=== PATIENT | male | born 1970 | race Caucasian/White ===

== ENCOUNTER 2025-09-24 08:04 | Outpatient (OUT) | payer OTHER, SELFPAY ==
--- OUTSIDE RECORDS SUMMARY | 2025-09-19 13:40 | XMS_ITS | Encounter Summary ---
Author Organization [facility] Address [address] [place] [address] Care Team Providers Care Fire Lieutenant Name Role Phone Sidney Enriquez DO Primary Care Provider Reason for Visit * ReasonCommentsNeck [facility] 09/01/25 Encounter Details DateTypeDepartmentCare Team (Latest Contact Info)Qydmrnkjuta52/21/2025 1:40 PM ESTOffice Visit [facility] [address] [place] [address] Roberta Luz MD [address] [place] [address] Pharyngeal mass (Primary Dx); Neck mass Social History Tobacco UseTypesPacks/DayYears UsedDateSmoking Tobacco: Every DayCigarettes Smokeless Tobacco: Never Tobacco Cessation:Ready to Q uit: Not Asked; Counseling Given: Not Answered Sex and Gender InformationValueDate RecordedSex Assigned at BirthNot on file Legal SsxGvyo4201/11/2023 11:50 PM EDTGender IdentityNot on fileSexual Orientation Not on filedocumented as of this encounter Last Filed Vital Signs Vital SignReadingTime TakenCommentsBlood Aubwitoc88/6809/19/2025 1:56 PM EST Okvxd81976/21/2025 1:56 PM ESTTemperature--Respiratory Rate--Oxygen Saturation-- Inhaled Oxygen Concentration--Cxnfqi99.6 kg (149 lb)09/19/2025 1:56 PM ESTHeight 182.9 cm (6')09/19/2025 1:56 PM ESTBody Mass Index20. 1:56 PM EST documented in this encounter Progress Notes * Roberta Luz MD - 09/19/2025 1:40 PM EST Subjective Patient ID: Chacorta Crowder is a 55 y.o. male who presents for Neck Mass ([facility] 09/01/25) Pt had a left neck mass found incidentally on an MRI of the c-spine. CT obtained that shows a 3.4cmleft zone 2 mass and a left tongue base lesion. Has had a sore throat for a couple mo. No otalgia. H/O dysphagia and had esophageal dilation 2 mo ago. Pt has smoked 1ppd for about 45 years. Has Occas EtOH. Review of Systems All other systems reviewed and are negative. Family History[1] Active Ambulatory Problems Diagnosis Date Noted Anxiety and depression 09/18/2025 Back pain 01/18/2018 Chronic pain syndrome 09/18/2025 Congenital stenosis of lumbar spine 01/18/2018 Constipation 03/14/2025 Gastro-esophageal reflux disease without esophagitis 01/18/2018 Less than a high school diploma 07/31/2024 Routine health maintenance 03/14/2025 Sacroiliac joint dysfunction of both sides 01/18/2018 Smoker 07/31/2024 Resolved Ambulatory Problems Diagnosis Date Noted No Resolved Ambulatory Problems No Additional Past Medical History Surgical History[2] Allergies[3] Medications Ordered Prior to Encounter[4] Objective Last Recorded Vitals Vitals: 09/19/25 1356 BP: 86/68 Pulse: 110 ENT Physical Exam Constitutional Appearance: patient appears well-developed and well-nourished, Head and Face Appearance: head appears normal and face appears atraumatic; Ear Ear comments: Dane ears normal Nose External Nose: nares patent bilaterally; external nose normal; Internal Nose: nasal mucosa normal; Oral Cavity/Oropharynx Lips: normal; Teeth: normal; Gums: gingiva normal; Tongue: normal; Oral mucosa: normal; Hard palate: normal; OC/OP comments: Hard mass at the lower pole of the left tonsil Neck Neck: neck normal; neck palpation normal; Thyroid: thyroid normal; Respiratory Inspection: breathing unlabored; normal breathing rate; Auscultation: breath sounds are clear; Cardiovascular Inspection: extremities are warm and well perfused; no peripheral edema present; Auscultation: regular rate and rhythm; Patient ID: Chacorta Crowder is a 55 y.o. male. Procedures A diagnostic flexible fiberoptic laryngoscopy was performed. The flexible fiberoptic laryngoscope was placed into the nose and advanced to the level of the tip of the epiglottis. Examination of the larynx including both surfaces of the epiglottis false and true vocal folds, arytenoids and surrounding mucosal surfaces show no evidence of lesion, ulceration or mass. Normal bilateral true vocal foldmotion is present. There is a 1.5cm mass at the junction of the left inferior tonsillar pole and tongue base Assessment/Plan Diagnoses and all orders for this visit: Pharyngeal mass Neck mass Pt has a left inf tonsillar pole/tongue base and a mass in the neck c/w a metastatic SCCA. I will plan a DL and bx to get a definitive dose. We will plan to test for P16 as tumors in this location are usually associated with papilloma virus [1] Family History Problem Relation Name Age of Onset Heart failure Mother Cancer Father [2] Past Surgical History: Procedure Laterality Date HERNIA REPAIR when he was 12 SKIN CANCER EXCISION back [3] Allergies Allergen Reactions Prednisone Shortness of breath Aspirin Other Reaction(s): Other (see comments), Unknown Codeine Other Reaction(s): GI intolerance, Unknown Naproxen GI intolerance Other Reaction(s): GI intolerance [4] Current Outpatient Medications on File Prior to Visit Medication Sig Dispense Refill diazePAM (Valium) 10 MG tablet TAKE 1 TABLET BY MOUTH A ONE TIME DOSE NEEDED FOR ANXIETY gabapentin (Neurontin) 300 MG capsule Take 300 mg by mouth in the morning and 300 mg in the eveningand 300 mg before bedtime. ibuprofen 800 MG tablet Take 800 mg by mouth 3 (three) times a day as needed omeprazole (PriLOSEC) [address] capsule Omeprazole tiZANidine (Zanaflex) 4 MG capsule Take 4 mg by mouth in the morning and 4 mg in the evening and 4 mg before bedtime. No current facility-administered medications on file prior to visit. documented in this encounter Plan of Treatment Not on file documented as of this encounter Visit Diagnoses Diagnosis Pharyngeal mass- Primary Unspecified disease of pharynx Neck mass Swelling, mass, or lump in head and neck documented in this encounter Care Teams Team MemberRelationshipSpecialtyStart DateEnd Date Sidney Enriquez DO [address] [facility] [address] [place] [address] PCP - GeneralFamily Ywgunwnx17/21/25documented as of this encounter
--- OUTSIDE RECORDS SUMMARY | 2025-09-24 08:07 | XMS_ITS | Encounter Summary ---
Author Organization [facility] Address [address] [place] [address] Care Team Providers Care Power Line Installer Name Role Phone Sidney Enriquez DO Primary Care Provider + [phone] Encounter Details DateTypeDepartmentCare Team (Latest Contact Info)Rqfoxluzdug43/21/2025Travel Social History Tobacco UseTypesPacks/DayYears UsedDateSmoking Tobacco: Every DayCigarettes Smokeless Tobacco: NeverSex and Gender InformationValueDate RecordedSex Assigned at BirthNot on fileLegal WnuZjit8101/11/2023 11:50 PM EDTGender IdentityNot on fileSexual OrientationNot on filedocumented as of this encounter Plan of Treatment Not on file documented as of this encounter Visit Diagnoses Not on filedocumented in this encounter Care Teams Team MemberRelationshipSpecialtyStart DateEnd Date Sidney Enriquez DO [address] [place] [address] PCP - GeneralFamily Cjuyvhny58/21/25documented as of this encounter
--- OUTSIDE RECORDS SUMMARY | 2025-09-24 08:07 | XMS_ITS | Encounter Summary ---
Author Organization [facility] Address [address] [place] [address] Care Team Providers Care Product Representative Name Role Phone Sidney Enriquez DO Primary Care Provider Encounter Details DateTypeDepartmentCare Team (Latest Contact Info)Hgwbhkgqgyx58/21/2025amboo flowsheet [facility] [address] [place] [address] Roberta Luz MD [address] [place] [address] Social History Tobacco UseTypesPacks/DayYears UsedDateSmoking Tobacco: Every DayCigarettes Smokeless Tobacco: NeverSex and Gender InformationValueDate RecordedSex Assigned at BirthNot on fileLegal JtaAikk9701/11/2023 11:50 PM EDTGender IdentityNot on fileSexual OrientationNot on filedocumented as of this encounter Plan of Treatment Not on file documented as of this encounter Visit Diagnoses Not on filedocumented in this encounter Care Teams Team MemberRelationshipSpecialtyStart DateEnd Date Sidney Enriquez DO [address] [place] [address] PCP - GeneralFamily Whtcnxaw88/21/25documented as of this encounter
--- OUTSIDE RECORDS SUMMARY | 2025-09-24 08:07 | XMS_ITS | Encounter Summary ---
Author Organization [facility] Address [address] [place] [address] Care Team Providers Care Cdl B Driver Name Role Phone Sidney Enriquez DO Primary Care Provider Encounter Details DateTypeDepartmentCare Team (Latest Contact Info)Ufkqvbenkkx23/20/2025Orders Only [facility] [address] [place] [address] Lisa Salazar MD [address] [place] [address] Social History Tobacco UseTypesPacks/DayYears UsedDateSmoking Tobacco: Never AssessedSex and Gender InformationValueDate RecordedSex Assigned at BirthNot on fileLegal Sex Male01/11/2023 11:50 PM EDTGender IdentityNot on fileSexual OrientationNot on filedocumented as of this encounter Plan of Treatment Not on file documented as of this encounter Procedures Procedure NamePriorityDate/TimeAssociated DiagnosisCommentsCT SOFT TISSUE NECK W IV CTPDNAZIOifkczf11/03/2025 8:19 AM ESTdocumented in this encounter Results * CT soft tissue neck w IV contrast (09/01/2025 8:19 AM EST)Anatomical Region LateralityModalityHead, NeckComputed Tomography Narrative Authorizing ProviderResult TypeResult StatusJaclbrittani SALEH CT PROCEDURESFinal Result documented in this encounter Visit Diagnoses Not on filedocumented in this encounter Care Teams Team MemberRelationshipSpecialtyStart DateEnd Date Sidney Enriquez DO [address] [place] [address] PCP - GeneralFamily Wjdrjiyq96/21/25documented as of this encounter
--- OUTSIDE RECORDS SUMMARY | 2025-09-24 08:07 | XMS_ITS | Clinical Summary ---
Author Organization [facility] Address [address] [place] [address] Care Team Providers Care Creative Specialist Name Role Phone YvonneSandra clemente Oc CRISTINA Primary Care Provider [phone] Allergies Active AllergyReactionsCriticalityNoted DateCommentsNaproxenGI Upset01/18/2018 Medications MedicationSigDispense QuantityRefillsLast FilledStart DateEnd DateStatus Omeprazole 20 mg TbEC 12/12/2017Active DULoxetine (CYMBALTA) 20 mg capsule Indications:Smoker,Gastroesophageal reflux disease, esophagitis presence not specified,Facet syndromeTake 1 tab PO qd 30 capsule Active gabapentin (NEURONTIN) 100 mg capsule Indications:Smoker,Gastroesophageal reflux disease, esophagitis presence not specified,Facet syndrome,Chronic pain of left knee,Pain in right hipTake 100 mg by mouth once daily as needed. Pt. States takes once daily06/05/2018Active hydrOXYzine pamoate (VISTARIL) 25 mg capsule Indications:Smoker,Gastroesophageal reflux disease, esophagitis presence not specified,Facet syndrome,Chronic pain of left knee,Pain in right hip06/05/2018 Active omeprazole (PRILOSEC) 20 mg capsule Indications:Smoker,Gastroesophageal reflux disease, esophagitis presence not specified,Facet syndrome,Chronic pain of left knee,Pain in right hip07/18/2018 Active VSL#3 112.5 billion cell cap Indications:Smoker,Gastroesophageal reflux disease, esophagitis presence not specified,Facet syndrome,Chronic pain of left knee,Pain in right hip06/19/2018 Active 16.2-0.1037 -0.0194 mg per tablet Indications:Smoker,Gastroesophageal reflux disease, esophagitis presence not specified,Facet syndrome,Chronic pain of left knee,Pain in right hipTake 1 tablet by mouth three times daily.Active FLECTOR 1.3 % topical patch 11/05/2018Active gabapentin (NEURONTIN) 300 mg capsule 10/29/2018Active hydrOXYzine HCl (ATARAX) 50 mg tablet 11/07/2018Active methocarbamol (ROBAXIN) 750 mg tablet 09/18/2018Active predniSONE (DELTASONE) 20 mg tablet 09/18/2018Active promethazine (PHENERGAN) 25 mg tablet 11/02/2018Active Active Problems ProblemNoted DateDiagnosed DateBack pain01/18/2018GERD (gastroesophageal reflux disease)01/18/2018Congenital stenosis of lumbar spine01/18/2018Sacroiliac joint dysfunction of both sides01/18/2018SmokerAnxiety and depressionChronic pain syndrome Family History Medical HistoryRelationCommentsArthritisFatherCancerFatherHeart diseaseFather ArthritisMotherHeart diseaseMotherRelationStatusCommentsFatherMother Social History Tobacco UseTypesPacks/DayYears UsedDateSmoking Tobacco: Every KdoAaiwkkpfav207 Smokeless Tobacco: Never Comments:smokes 1 ppd Alcohol UseStandard Drinks/WeekCommentsYes0 (1 standard drink = 0.6 oz pure alcohol)socialArea Deprivation IndexAnswerDate RecordedNational Score (1-100), lower number is lower riskNot on file10/04/2020State Score (1-10), lower number is lower riskNot on file10/04/2020Data from: https://www.neighborhoodatlas.[facility].edu/. 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 tbdpndUnmesf926.9 cm (6')01/18/2018 9:07 AM EDTself report ht/wtBody Mass Index18.9901/18/2018 9:07 AM EDT Plan of Treatment Health MaintenanceDue DateLast DoneCommentsAnxiety Ofvieaorj11/27/1986Depression Umeycvrka92/27/1986HIV Scpiymgjf76/27/1986Hepatitis C Wmcebsnem68/27/1986 DTaP,Tdap,Td Vaccine (1 - Tdap)1987Hepatitis B Vaccine (1 of 3 - 19+ 3- dose series)1987Lipid Owmihhfbg04/27/2003CT Vnbktuobbfmu82/27/2013 Cologuard (FIT-DNA)07/26/20136891Ycljliboejp06/27/2013Colorectal Cancer Screening 2013Diabetes Fuzehkyhf63/27/2013Fecal Occult Blood2013Prostate Cancer Screening Tbnbvjxqor19/27/4963Dhfgisjlgkgdx84/27/2013Pneumococcal Vaccine: 50+ (1 of 1 - PCV)2018Shingrix Vaccine (1 of 2)2018Covid-19 Vaccine (1 - 2024- season)2025Influenza Vaccine (#1)2025 Insurance Care Teams Team MemberRelationshipSpecialtyStart DateEnd Date Sandra Gonsales NP [address] [place] [address] [place] [address] [facility]12/13/17
--- OUTSIDE RECORDS SUMMARY | 2025-09-24 08:07 | XMS_ITS | Patient Health Record ---
Demographics Address [address] [place] [address] Mobile Email Address Preferred Language en Marital Status unmarried Yazidi Affiliation Unknown Race White Ethnic Group Not or Lati no Author Organization [facility] [facility] es Address [address] [place] [address] Care Team Providers Care Rewinder Operator Name Role Phone Issac Saldaña Primary Care Provider Allergies Allergen (clinical drug ingredient) Drug/Non Drug Allergy documented on EMR Reaction Allergy Type Onset Date Status aspirin Aspirin Unknown Drug Allergy ActivecodeineCodeineUnknownDrug AllergyActive Reason For Referral No Information Medications Medication SIG (Take, Route, Frequency, Duration) Notes Start Date End Date Status Tylenol ActiveOmeprazoleActive Plan Of Treatment No Information Insurance Providers Payer Name Payer Address Payer Phone Subscriber Number Group Number Insured Name Patient Relationship to Insured Coverage Start Date Coverage End Date [employer] [address] [place] [address] [id number] Sheldon SELLERS - patient is the [id number] 2022ental Wrap [facility] [address] [place] [id number], LARRYSelf - patient is the [id number] 2022
--- OUTSIDE RECORDS SUMMARY | 2025-09-24 08:07 | XMS_ITS | Clinical Summary ---
Author Organization [facility] Address [address] [place] [address] Care Team Providers Care Hammer Fitter Name Role Phone Sidney Enriquez DO Primary Care Provider [phone] Allergies Active AllergyReactionsCriticalityNoted GdchQbcejrnyEwyhfeo10/13/2025 Other Reaction(s): Other (see comments), Unknown Hggbtek0207/31/2024 Other Reaction(s): GI intolerance, Unknown NaproxenGI wzrhefluxpu20/22/2018 Other Reaction(s): GI intolerance PrednisoneShortness of fwlhkyMzpj06/02/2024 Medications MedicationSigDispense QuantityRefillsLast FilledStart DateEnd DateStatus gabapentin (Neurontin) 300 MG capsule Take 300 mg by mouth in the morning and 300 mg in the evening and 300 mg before bedtime.5Active ibuprofen 800 MG tablet Take 800 mg by mouth 3 (three) times a day as wyqjmv6308/28/2025tive diazePAM (Valium) 10 MG tablet TAKE 1 TABLET BY MOUTH A ONE TIME DOSE NEEDED FOR XCNOYRC3808/28/2025tive omeprazole (PriLOSEC) [address] capsule OmeprazoleActive tiZANidine (Zanaflex) 4 MG capsule Take 4 mg by mouth in the morning and 4 mg in the evening and 4 mg before bedtime.5Active Active Problems ProblemNoted DateDiagnosed DateAnxiety and cyshkbugni63/20/2025hronic pain ixfxqvzk55/20/0753Avceukysbhop29/16/2025Routine health tqxubbsenmt35/16/2025Less than a high school liuarmt9707/31/20248144Hgwdim07/02/2024Back pain01/18/2018 Congenital stenosis of lumbar spine01/18/2018Gastro-esophageal reflux disease without hypohqlvqxm07/22/2018 Overview (09/18/2025): K21.9 - Gastrointestinal - low Added by Interface Sacroiliac joint dysfunction of both sides01/18/2018 Encounters DateTypeDepartmentCare EtxkPqplzuflyqd83/21/2025 1:40 PM ESTOffice Visit [facility] [address] [place] [address] Roberta Luz MD Pharyngeal mass (Primary Dx); Neck mass09/19/2025amboo flowsheet [facility] [address] [place] [address] Roberta Luz MD 09/19/20257534Pkqdnt99/20/2025Orders Only [facility] Ot[facility] [address] [place] [address] Lisa Salazar MD from Last 3 Months Family History Medical HistoryRelationNameCommentsCancerFatherHeart failureMotherRelationName StatusCommentsFatherDeceasedMotherDeceased Social History Tobacco UseTypesPacks/DayYears UsedDateSmoking Tobacco: Every DayCigarettes Smokeless Tobacco: Never Tobacco Cessation:Ready to Q uit: Not Asked; Counseling Given: Not Answered Sex and Gender InformationValueDate RecordedSex Assigned at BirthNot on file Legal ZnfPqil1401/11/2023 11:50 PM EDTGender IdentityNot on fileSexual Orientation Not on file Last Filed Vital Signs Vital SignReadingTime TakenCommentsBlood Sgewjklc34/6809/19/2025 1:56 PM EST Mpsss28441/21/2025 1:56 PM ESTTemperature--Respiratory Rate--Oxygen Saturation-- Inhaled Oxygen Concentration--Casjte67.6 kg (149 lb)09/19/2025 1:56 PM ESTHeight 182.9 cm (6')09/19/2025 1:56 PM ESTBody Mass Index20.21111/19/2024 1:56 PM EST Plan of Treatment Not on file Procedures Procedure NamePriorityDate/TimeAssociated DiagnosisCommentsCT SOFT TISSUE NECK W IV BZZGHAJHZkydraa11/03/2025 8:19 AM ESTfrom Last 3 Months Results * CT soft tissue neck w IV contrast (09/01/2025 8:19 AM EST)Anatomical Region LateralityModalityHead, NeckComputed Tomography Narrative Authorizing ProviderResult TypeResult StatusLisa SALEH CT PROCEDURESFinal Result from Last 3 Months Insurance Care Teams Team MemberRelationshipSpecialtyStart DateEnd Date Sidney Enriquez DO [address] [facility] [address] [place] [address] PCP - GeneralFamily Vjvpqhwc25/21/25
--- OUTSIDE RECORDS SUMMARY | 2025-09-24 08:07 | XMS_ITS | Clinical Summary ---
Author Organization [facility] 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 [employer] 08/13/2025 1:48 PM EDT - 08/15/2025 11:59 PM EDTHospital Encounter [facility] [address] [place] [address] Radiculopathy, cervical Discharge Disposition: Home or Self Care07/15/2025Transcribe Orders Mike Carranza Pre Access [address] [place] [address] 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 [employer] Radiculopathy, cervical (Primary Dx)from Last 3 Months Social History Tobacco UseTypesPacks/DayYears UsedDateSmoking Tobacco: Never AssessedSex and Gender InformationValueDate RecordedSex Assigned at BirthNot on fileLegal Sex Male07/15/2025 9:09 AM EDTGender IdentityNot on fileSexual OrientationNot on file Plan of Treatment DateTypeDepartmentCare Team (Latest Contact Info)Neegjibyikz21/04/2025 1:00 PM ESTAppointment [facility] [address] [place] [place] [address] media// sw ptHealth MaintenanceDue DateLast DoneCommentsDepression Screen 1980HIV kmhhzr6607/26/1983Hepatitis C ztyqhn3207/26/1986DTaP/Tdap/Td vaccine (1 - Tdap)1987Hepatitis B vaccine (1 of 3 - 19+ 3-dose series)1987 Cfwwdz8007/26/20088446Uujzlgmjmzw20/27/2013Colorectal Cancer Xctyju8207/26/2013FIT/FOBT: Average risk2013Fecal-DNA (Cologuard): Average risk2013 Sigmoidoscopy/CT dmufojfrhteo10/27/2013Pneumococcal 50+ years Vaccine (1 of 1 - PCV)2018Shingles vaccine (1 of 2)2018Flu vaccine (#1)05/30/2025 COVID-19 Vaccine (1 - season)2025Hepatitis A vaccineAged OutNo longer eligible based on patient's age to complete this topicHib vaccineAged Out No longer eligible based on patient's age to complete this topicMeningococcal (ACWY) vaccineAged OutNo longer eligible based on patient's age to complete this topicMeningococcal B vaccineAged OutNo longer eligible based on patient's age to complete this topicPolio vaccineAged OutNo longer eligible based on patient's age to complete this topic Procedures Procedure NamePriorityDate/TimeAssociated DiagnosisCommentsMRI CERVICAL SPINE WO FOWWDJFCQwspezs86/15/2025 2:48 PM EDT Radiculopathy, cervical from Last 3 Months Results * MRI CERVICAL SPINE WO CONTRAST (08/13/2025 2:48 PM EDT)Anatomical Region LateralityModalityC-spine, T-spine, NeckMagnetic ResonanceSpecimen (Source) Anatomical Location / LateralityCollection Method / VolumeCollection Time Received Time08/13/2025 4:05 PM EDT Impressions 08/13/2025 4:13 PM EDT 1. Advanced degenerative change with grade 1 retrolisthesis at C4-5. 2. Multilevel central canal stenosis, moderate at C3-4 and C4-5 and mild at C5-6 with slight impression on the ventral aspect of the spinal cord. 3. Multilevel neural foraminal stenosis, most prominent (severe) on the left at C4-5 and on the right at C5-6. 4. Heterogeneous mass in the left neck deep to the sternocleidomastoid muscle measuring up to 2.8 x 1.6 cm. This could represent lymphadenopathy with some partially necrotic nodes. Another heterogeneous cystic areas seen anteriorly in the left neck measuring 1.2 cm. Further evaluation with contrast enhanced CT of the neck is suggested. Narrative 08/13/2025 4:13 PM EDT EXAMINATION: MRI OF THE CERVICAL SPINE WITHOUT CONTRAST 08/13/2025 2:48 pm TECHNIQUE: Multiplanar multisequence MRI of the cervical spine was performed without the administration of intravenous contrast. COMPARISON: None. HISTORY: ORDERING SYSTEM PROVIDED HISTORY: Radiculopathy, cervical TECHNOLOGIST PROVIDED HISTORY: What reading provider will be dictating this exam?->CRC FINDINGS: BONES/ALIGNMENT: There is grade 1 retrolisthesis of C4 on C5. ??There is spurring with disc space narrowing at multiple levels, moderate to severe at C4-5 and C5-6 and moderate at C3-4 and C6-7. ??The vertebral body heights are maintained. The bone marrow signal appears unremarkable. SPINAL CORD: No abnormal cord signal is seen. SOFT TISSUES: There is a heterogeneous partially solid mass with cystic areas in the left neck deep to the sternocleidomastoid muscle seen on axial series 8 and 9 images 4 through 12 measuring up to 2.8 x 1.6 cm. ??The etiology is uncertain although this could represent lymphadenopathy with some partially necrotic nodes. ??Another heterogeneous cystic areas seen anteriorly in the left neck on series 8 image 12 measuring 1.2 cm. C2-C3: There is no significant disc protrusion, spinal canal stenosis or neural foraminal narrowing. C3-C4: There is broad-based disc osteophyte complex and mild posterior ligamentum flavum hypertrophy causing moderate central canal stenosis with slight impression on the ventral aspect of the spinal cord. ??There is moderate to severe right and moderate left neural foraminal narrowing. C4-C5: There is grade 1 retrolisthesis, broad-based disc osteophyte complex and mild ligamentum flavum hypertrophy causing moderate central canal stenosis with impression on the ventral aspect of the spinal cord. ??There is severe left and mild right neural foraminal narrowing. C5-C6: There is central and right posterolateral disc osteophyte complex causing mild central canal stenosis with minimal impression on the ventral aspect of the spinal cord. ??There is severe right and mild left neural foraminal narrowing. C6-C7: There is mild disc bulge without evidence of significant central canal stenosis or cord compression. ??There is moderate bilateral neural foraminal narrowing. C7-T1: There is no significant disc protrusion, spinal canal stenosis or neural foraminal narrowing. Procedure Note Perico Sanderson MD - 08/13/2025 EXAMINATION: MRI OF THE CERVICAL SPINE WITHOUT CONTRAST 08/13/2025 2:48 pm TECHNIQUE: Multiplanar multisequence MRI of the cervical spine was performed withoutthe administration of intravenous contrast. COMPARISON: None. HISTORY: ORDERING SYSTEM PROVIDED HISTORY: Radiculopathy, cervical TECHNOLOGIST PROVIDED HISTORY: What reading provider will be dictating this exam?->CRC FINDINGS: BONES/ALIGNMENT: There is grade 1 retrolisthesis of C4 on C5. There is spurring with disc space narrowing at multiple levels, moderate to severeat C4-5 and C5-6 and moderate at C3-4 and C6-7. The vertebral body heightsare maintained. The bone marrow signal appears unremarkable. SPINAL CORD: No abnormal cord signal is seen. SOFT TISSUES: There is a heterogeneous partially solid mass with cysticareas in the left neck deep to the sternocleidomastoid muscle seen on axialseries 8 and 9 images 4 through 12 measuring up to 2.8 x 1.6 cm. The etiologyis uncertain although this could represent lymphadenopathy with somepartially necrotic nodes. Another heterogeneous cystic areas seen anteriorly inthe left neck on series 8 image 12 measuring 1.2 cm. C2-C3: There is no significant disc protrusion, spinal canal stenosis or neural foraminal narrowing. C3-C4: There is broad-based disc osteophyte complex and mild posterior ligamentum flavum hypertrophy causing moderate central canal stenosiswith slight impression on the ventral aspect of the spinal cord. There is moderate to severe right and moderate left neural foraminal narrowing. C4-C5: There is grade 1 retrolisthesis, broad-based disc osteophytecomplex and mild ligamentum flavum hypertrophy causing moderate central canal stenosis with impression on the ventral aspect of the spinal cord. Thereis severe left and mild right neural foraminal narrowing. C5-C6: There is central and right posterolateral disc osteophyte complex causing mild central canal stenosis with minimal impression on theventral aspect of the spinal cord. There is severe right and mild left neural foraminal narrowing. C6-C7: There is mild disc bulge without evidence of significant centralcanal stenosis or cord compression. There is moderate bilateral neuralforaminal narrowing. C7-T1: There is no significant disc protrusion, spinal canal stenosis or neural foraminal narrowing. IMPRESSION: 1. Advanced degenerative change with grade 1 retrolisthesis at C4-5. 2. Multilevel central canal stenosis, moderate at C3-4 and C4-5 and mildat C5-6 with slight impression on the ventral aspect of the spinal cord. 3. Multilevel neural foraminal stenosis, most prominent (severe) on theleft at C4-5 and on the right at C5-6. 4. Heterogeneous mass in the left neck deep to the sternocleidomastoidmuscle measuring up to 2.8 x 1.6 cm. This could represent lymphadenopathy withsome partially necrotic nodes. Another heterogeneous cystic areas seenanteriorly in the left neck measuring 1.2 cm. Further evaluation with contrastenhanced CT of the neck is suggested. Authorizing ProviderResult TypeResult StatusLisa Oneal APRN - [facility] MRI ORDERABLESFinal Result from Last 3 Months Insurance
--- NOTE | 2025-09-24 08:14 | ECG_ITS ---
The 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 Measurements Intervals [place] Rate: 66 P: 62 NH: 141 QRS: 118 QRSD: 122 T: 76 QT: 342 QTc: 359 Interpretive Statements SINUS RHYTHM MARKED RIGHT AXIS DEVIATION [QRS AXIS > 100] RIGHT BUNDLE BRANCH BLOCK [120+ ms QRS DURATION, UPRIGHT V1, 40+ ms S IN I/aVL/V4/V5/V6] Abnormal ECG No previous ECG available for comparison Electronically Signed On 09-24-2025 19:10:18 EST by RUDDY BLISS M.D.
--- NOTE | 2025-09-24 08:14 | XR_ITS ---
The [address] [address] Patient Name: ESPERANZA SELLERS MRN: [id number] date: 1970 Sex: M Assigned Patient Location: [facility] Current Patient Location: [facility] Accession/Order Number: [id number] Exam Date: 09/24/2025 09:00 Report Date: 09/24/2025 09:13 At the request of: MARISA PAYNE MD Procedure: XR chest 2V PA AND LATERAL CHEST: CLINICAL HISTORY: Preoperative clearance . History of tobacco use. COMPARISON: None The lungs shows slight hyperinflation. There is no focal parenchymal consolidation, effusion or pneumothorax. The cardiac, hilar and mediastinal silhouettes are within normal limits. There is no vascular congestion. The visualized bony thorax is intact. There is dextroscoliotic curvature and endplate spurring. XR/XR chest 2V IMPRESSION: NO ACUTE CARDIOPULMONARY ABNORMALITY. Impression dictated by: Romi Farley M.D. 09/24/2025 9:13 AM Dictation Location: [place] [address] Electronically authenticated by: [id number] Y Date: 09/24/2025 09:13
[2025-09-24 08:49] LABS: Hematocrit 41.9 % (42.0-54.0); Hemoglobin 14.1 g/dL (14.0-18.0); Immature Granulocytes Abs Auto 0.01 10^3/uL (0.00-0.03); Immature Granulocytes Pct Auto 0.2 % (0.0-0.5); Lymphocytes Absolute Auto 1.5 10^3/uL (1.2-3.8); Mean Corpuscular HGB Conc 33.7 g/dL (29.9-35.2); Mean Corpuscular Hemoglobin 32.2 pg (25.9-34.0); Mean Corpuscular Volume 95.7 fL (80.0-94.0); Platelet Count 273 10^3/uL (150-450); Red Blood Count 4.38 10^6/uL (4.70-6.10); White Blood Count 4.7 10^3/uL (4.0-11.0)
[2025-09-24 09:21] LABS: INR 0.98; Partial Thromboplastin Time 26.9 sec (22.3-36.2); Prothrombin Time 10.4 sec (9.0-11.6)
== END 2025-09-24 08:05 | disposition home or self-care (01) ==
LOC: PST 08:05
PROVIDERS: PCP Family Medicine Adult Medicine; Visit Provider Otolaryngology
DX: J39.2 Other diseases of pharynx (principal); R22.1 Localized swelling, mass and lump, neck
CPT/HCPCS: 36415; 71046; 85025; 85610; 85730; 93005

== ENCOUNTER 2025-10-02 08:51 | Day surgery (SDC) | payer OTHER, SELFPAY ==
--- OUTSIDE RECORDS SUMMARY | 2025-09-19 13:40 | XMS_ITS | Encounter Summary ---
Author Organization [facility] Address [address] [place] [address] Care Team Providers Care Mold Cleaner Name Role Phone Sidney Enriquez DO Primary Care Provider Reason for Visit * ReasonCommentsNeck [facility] 09/01/25 Encounter Details DateTypeDepartmentCare Team (Latest Contact Info)Xpeknsbizmv33/21/2025 1:40 PM ESTOffice Visit [facility] [address] [place] [address] Roberta Luz MD [address] [place] [address] Pharyngeal mass (Primary Dx); Neck mass Social History Tobacco UseTypesPacks/DayYears UsedDateSmoking Tobacco: Every DayCigarettes Smokeless Tobacco: Never Tobacco Cessation:Ready to Q uit: Not Asked; Counseling Given: Not Answered Sex and Gender InformationValueDate RecordedSex Assigned at BirthNot on file Legal RevYuqj3101/11/2023 11:50 PM EDTGender IdentityNot on fileSexual Orientation Not on filedocumented as of this encounter Last Filed Vital Signs Vital SignReadingTime TakenCommentsBlood Jjikxlhe81/6809/19/2025 1:56 PM EST Xlnwe25803/21/2025 1:56 PM ESTTemperature--Respiratory Rate--Oxygen Saturation-- Inhaled Oxygen Concentration--Wlxxcy03.6 kg (149 lb)09/19/2025 1:56 PM ESTHeight 182.9 cm (6')09/19/2025 1:56 PM ESTBody Mass Index20. 1:56 PM EST documented in this encounter Progress Notes * Roberta Luz MD - 09/19/2025 1:40 PM EST Subjective Patient ID: Chacorta Crowder is a 55 y.o. male who presents for Neck Mass (CT [facility] 09/01/25) Pt had a left neck mass found incidentally on an MRI of the c-spine. CT obtained that shows a 3.4cm left zone 2 mass and a left tongue [...] MemberRelationshipSpecialtyStart DateEnd Date Sidney Enriquez DO [address] [facility] [address] [place] [address] PCP - GeneralFamily Ghczbtnq31/21/25documented as of this encounter
[2025-09-24 08:38] VITALS: BP 109/74; PULSE 71; TEMP 36.6; O2SAT 97; BMI 20.1
[2025-10-02] VITALS (13 sets, daily range): BP systolic 89–117; BP diastolic 66–88; PULSE 55–118; TEMP 36.3–36.8; O2SAT 94–98; BMI 19.6
--- NOTE | 2025-10-02 | OP_ITS ---
OPERATION DATE: 10/02/2025 SURGEON: Roberta Luz M.D. PREOPERATIVE DIAGNOSIS: Left tongue base mass and left neck mass. POSTOPERATIVE DIAGNOSIS: Left tongue base mass and left neck mass. PROCEDURE: Direct laryngoscopy and biopsy of left tongue base. ANESTHESIA: General endotracheal COMPLICATIONS: None. FINDINGS: 1.5 cm hard friable mass of the left tongue base. INDICATIONS: This 55-year-old man presented after having been found to have multiple enlarged necrotic lymph nodes in the left neck. He also had, what appeared to be, a 1.5 cm mass involving the tongue base on the same CT scan. PROCEDURE: Patient identified in the holding area and taken back to the OR where he was placed in the supine position. After induction of general endotracheal anesthesia, the table was turned, a shoulder roll placed, and the Dedo laryngoscope was used to examine the tonsillar fossae and tongue base. There was early discovery of a friable mass, as noted above. Careful examination of the rest of the tongue base showed no other clear abnormality. Multiple biopsies, using an upbiting cup forcep were obtained of the above noted mass. There was self-limited bleeding. Once the bleeding had stopped, the oral cavity was irrigated with normal saline and the patient was awakened and taken to the recovery room in good condition. LILI
--- OUTSIDE RECORDS SUMMARY | 2025-10-02 08:55 | XMS_ITS | Clinical Summary ---
Author Organization [facility] Healthcare Address [address] [place] [address] Care Team Providers Care Engineering And Development Director Name Role Phone Sidney Enriquez DO Primary Care Provider [phone] Allergies Active AllergyReactionsCriticalityNoted BlguCtahwafkYhmwtcb05/13/2025 Other Reaction(s): Other (see comments), Unknown Hkaieyk4307/31/2024 Other Reaction(s): GI intolerance, Unknown NaproxenGI pazcacnfvzd29/22/2018 Other Reaction(s): GI intolerance PrednisoneShortness of xluvozJqok95/02/2024 Medications MedicationSigDispense QuantityRefillsLast FilledStart DateEnd DateStatus gabapentin (Neurontin) 300 MG capsule Take 300 mg by mouth in the morning and 300 mg in the evening and 300 mg before bedtime.5Active ibuprofen 800 MG tablet Take 800 mg by mouth 3 (three) times a day as psedjw5408/28/2025tive diazePAM (Valium) 10 MG tablet TAKE 1 TABLET BY MOUTH A ONE TIME DOSE NEEDED FOR KWHJXVC3508/28/2025tive omeprazole (PriLOSEC) [address] capsule OmeprazoleActive tiZANidine (Zanaflex) 4 MG capsule Take 4 mg by mouth in the morning and 4 mg in the evening and 4 mg before bedtime.5Active Active Problems ProblemNoted DateDiagnosed DateAnxiety and msgogwivvi27/20/2025hronic pain iamnblze39/20/8452Srwvrwpscgym81/16/2025Routine health wfamazzbtfy47/16/2025Less than a high school fsoggqn7307/31/20249909Fswkbi19/02/2024Back pain01/18/2018 Congenital stenosis of lumbar spine01/18/2018Gastro-esophageal reflux disease without mtjdiwrukbc53/22/2018 Overview (09/18/2025): K21.9 - Gastrointestinal - low Added by Interface Sacroiliac joint dysfunction of both sides01/18/2018 Encounters DateTypeDepartmentCare OgdoHrtvuomyerg14/26/2025linisync Result Encounter [facility] External Department Unsolicited Roberta Luz MD 09/24/2025linisync Result Encounter [facility] External Department Unsolicited Roberta Luz MD 09/24/2025linisync Result Encounter [facility] External Department Unsolicited Roberta Luz MD 09/19/2025 1:40 PM ESTOffice Visit [facility] [address] [place] [address] Roberta Luz MD Pharyngeal mass (Primary Dx); Neck mass5Bamboo flowsheet [facility] [address] [place] [address] Roberta Luz MD 09/19/20256506Xvpxfb10/20/2025Orders Only [facility] [address] [place] [address] Lisa Salazar MD from Last 3 Months Family History Medical HistoryRelationNameCommentsCancerFatherHeart failureMotherRelationName StatusCommentsFatherDeceasedMotherDeceased Social History Tobacco UseTypesPacks/DayYears UsedDateSmoking Tobacco: Every DayCigarettes Smokeless Tobacco: Never Tobacco Cessation:Ready to Q uit: Not Asked; Counseling Given: Not Answered Sex and Gender InformationValueDate RecordedSex Assigned at BirthNot on file Legal RtvJwqq5101/11/2023 11:50 PM EDTGender IdentityNot on fileSexual Orientation Not on file Last Filed Vital Signs Vital SignReadingTime TakenCommentsBlood Dchhvkzu94/6809/19/2025 1:56 PM EST Nofrh45695/21/2025 1:56 PM ESTTemperature--Respiratory Rate--Oxygen Saturation-- Inhaled Oxygen Concentration--Wubqem07.6 kg (149 lb)09/19/2025 1:56 PM ESTHeight 182.9 cm (6')09/19/2025 1:56 PM ESTBody Mass Index20.21111/19/2024 1:56 PM EST Plan of Treatment Not on file Procedures Procedure NamePriorityDate/TimeAssociated DiagnosisCommentsXR CHEST 2V111/24/2024 9:13 AM EST [facility] NIRIDihhzsu12/26/2025 8:40 AM EST SRMCOH PROTHROMBIN TIME INR W/O RNDTBjxgvsr12/26/2025 8:40 AM EST ALL CBC WITH AUTO TKWVOmyeygn54/26/2025 8:40 AM EST ECG 12-LEAD09/24/2025 7:[address] SOFT TISSUE NECK W IV RKNNZDZYSpzgqkh95/03/2025 8:19 AM ESTfrom Last 3 Months Results * XR CHEST 2V (09/24/2025 9:13 AM EST)Anatomical RegionLateralityModalityOther Specimen (Source)Anatomical Location / LateralityCollection Method / Volume Collection TimeReceived Time09/24/2025 9:13 AM EST Narrative 09/24/2025 9:16 AM EST [facility] ?[address] ? [place] [address] ?XRay Report ? Signed ? Patient: YOUNG,ESPERANZA ? MR#: [id number] ?? : 1970 ?Acct:[id number] ?? Age/Sex: 55 / M ?ADM Date: 09/24/25 ?? Loc: PST ? Attending Dr: Roberta Luz M.D. ? Ordering Physician: Roberta Luz M.D. ?? Date of Service: 09/24/25 ?? Procedure(s): XR chest 2V ?? Accession Number(s): [id number] ? cc: Sidney Enriquez D.O.; Roberta Luz M.D. ? [facility] ? [address] ? [place] [address] ? Patient Name: ?? ESPERANZA ??YOUNG ? MRN: [facility]:[id number] ? date: 1970 ?Sex: M ?? Assigned Patient Location: SURGOUT ?? Current Patient Location: SURGOUT ?? Accession/Order Number: [id number] ?? Exam Date: 09/24/2025 ??09:00 ?Report Date: 09/24/2025 ??09:13 ? At the request of: ?? ROBERTA ??TIMMIS ??MD ? Procedure: ??XR chest 2V ? PA AND LATERAL CHEST: ? CLINICAL HISTORY: Preoperative clearance . History of tobacco use. ? COMPARISON: None ? The lungs shows slight hyperinflation. There is no focal parenchymal ?? consolidation, effusion or pneumothorax. ?? The cardiac, hilar and mediastinal ?? silhouettes are within normal limits. ?? There is no vascular congestion. ?? The ?? visualized bony thorax is intact. ?? There is dextroscoliotic curvature and ?? endplate spurring. ? XR/XR chest 2V ?? IMPRESSION: ? NO ACUTE CARDIOPULMONARY ABNORMALITY. ? Impression dictated by: Romi Farley M.D. ??09/24/2025 9:13 AM ? Dictation Location: [place] [address] ? Electronically authenticated by: [id number] ??Y ?? Date: 09/24/2025 ??09:13 ? Dictated By: ?Romi Farley M.D. ? Signed By: ?09/24/25 0916 ? DD/ 0913 ? TD/TT: ? Trial Mgr: Procedure Note Radiology, Radiologist, - 09/24/2025 [place] [address] XRay Report Signed Patient: APOORVA CROWDER#: [id number] : 1970Acct:[id number] Age/Sex: 55 / MADM Date: 09/24/25 Loc: PST Attending Dr: Roberta Luz M.D. Ordering Physician: Roberta Luz M.D. Date of Service: 09/24/25 Procedure(s): XR chest 2V Accession Number(s): [id number] cc: Sidney Enriquez D.O.; Roberta Luz M.D. [place] [id number] Patient Name: ESPERANZA CROWDER MRN: [id number] date: 1970 Sex: M [facility] Accession/Order Number: [id number] Exam Date: 09/24/2025 09:00 Report Date: 09/24/2025 09:13 At the request of: ROBERTA LUZ MD Procedure: XR chest 2V PA AND LATERAL CHEST: CLINICAL HISTORY: Preoperative clearance . History of tobacco use. COMPARISON: None The lungs shows slight hyperinflation. There is no focal parenchymal consolidation, effusion or pneumothorax. The cardiac, hilar andmediastinal silhouettes are within normal limits. There is no vascular congestion.The visualized bony thorax is intact. There is dextroscoliotic curvature and endplate spurring. XR/XR chest 2V IMPRESSION: NO ACUTE CARDIOPULMONARY ABNORMALITY. Impression dictated by: Romi Farley M.D. 09/24/2025 9:13 AM Dictation Location: [place] [address] Electronically authenticated by: [id number] Y Date: 9:13 Dictated By: Romi Farley M.D. Signed By:09/24/25915 DD/ 2 TD/TT: Trial Mgr: Authorizing ProviderResult TypeResult StatusHilaoumou Luz MDCLINISYNC IMAGING Final Result * SRMCO[facility] PROTHROMBIN TIME INR W/O COUM (09/24/2025 8:40 AM EST)ComponentValueRef RangeTest MethodAnalysis TimePerformed AtPathologist SignaturePROTHROMBIN TIME 10.49.0 - 11.6 secTBHTBH INR0.98TBHComment: DESIRED INR: 2.0-3.0 CONDITIONS NOT LISTED BELOW 2.5-3.5 FOR PROSTHETIC HEART VALVE REPLACEMENT 2.5-3.5 RECURRENT THROMBOSIS Specimen (Source)Anatomical Location / LateralityCollection Method / Volume Collection TimeReceived Time09/24/2025 8:40 AM EST09/24/2025 8:44 AM EST Narrative CLIN[facility]NC - 09/24/2025 9:23 AM EST Authorizing ProviderResult TypeResult StatusHilary H Timmis MDCLINISYNCFinal ResultPerforming OrganizationAddressCity/State/ZIP CodePhone Number [facility] * [facility] APTT (09/24/2025 8:40 AM EST)ComponentValueRef RangeTest MethodAnalysis TimePerformed AtPathologist SignaturePARTIAL THROMBOPLASTIN TIME26.922.3 - 36.2 secTBHSpecimen (Source)Anatomical Location / LateralityCollection Method / VolumeCollection TimeReceived Time09/24/2025 8:40 AM EST09/24/2025 8:44 AM EST Narrative CL[facility]NC - 09/24/2025 9:23 AM EST Authorizing ProviderResult TypeResult StatusHilary H Timmis MDCLINISYNCFinal ResultPerforming OrganizationAddressCity/State/ZIP CodePhone Number [facility] * (ABNORMAL) ALL CBC WITH AUTO DIFF (09/24/2025 8:40 AM EST)ComponentValueRef RangeTest MethodAnalysis TimePerformed AtPathologist SignatureTBH WBC4.74.0 - 11.0 10 3/uLTBHTBH RBC4.38(L)4.70 - 6.10 10 6/uLTBHTBH HGB14.114.0 - 18.0 g/dL TBHTBH HCT41.9(L)42.0 - 54.0 %TBHTBH MCV95.7(H)80.0 - 94.0 fLTBHTBH MCH32.2 25.9 - 34.0 pgTBHTBH MCHC33.729.9 - 35.2 g/dLTBHTBH RDW12.911.0 - 15.0 %TBHTBH LLE279552 - 450 10 3/uLTBHTBH MPV9.2(L)9.5 - 13.5 fLTBHNEUTROPHILS PERCENT AUTO46.043.0 - 75.0 %TBHLYMPHOCYTES PERCENT AUTO33.020.5 - 60.0 %TBHMONOCYTES PERCENT AUTO10.31.7 - 12.0 %TBHTBH EO %9.4(H)0.9 - 7.0 %TBHBASOPHILS PERCENT AUTO1.10.2 - 2.0 %TBHIMMATURE GRANULOCYTES PCT AUTO0.20.0 - 0.5 %TBH NEUTROPHILS ABSOLUTE AUTO2.11.4 - 6.5 10 3/uLTBHLYMPHOCYTES ABSOLUTE AUTO1.5 1.2 - 3.8 10 3/uLTBHMONOCYTES ABSOLUTE AUTO0.50.3 - 0.8 10 3/uLTBHTBH EO #0.4 0.0 - 0.7 10 3/uLTBHBASOPHILS ABSOLUTE AUTO0.10.0 - 0.1 10 3/uLTBHIMMATURE GRANULOCYTES ABS AUTO0.010.00 - 0.03 10 3/uLTBHSpecimen (Source)Anatomical Location / LateralityCollection Method / VolumeCollection TimeReceived Time 09/24/2025 8:40 AM EST09/24/2025 8:44 AM EST Narrative [facility] - 09/24/2025 8:53 AM EST Authorizing ProviderResult TypeResult StatusHilary H Timmis MDCLINISYNCFinal ResultPerforming OrganizationAddressCity/State/ZIP CodePhone Number [facility] * ECG 12-LEAD (09/24/2025 7:36 AM EST)Anatomical RegionLateralityModalityOther Specimen (Source)Anatomical Location / LateralityCollection Method / Volume Collection TimeReceived Time09/24/2025 7:36 AM EST Narrative 09/24/2025 7:10 PM EST [facility] ?[address] ? [place] [id number] ? Electrocardiograph Report ? Signed ? Patient: ESPERANZA CROWDER ? MR#: [id number] ?? : 1970 ?Acct:[id number] ?? Age/Sex: 55 / M ?ADM Date: 09/24/25 ?? Loc: PST ? Attending Dr: Roberta Luz M.D. ? Ordering Physician: Roberta Luz M.D. ?? Date of Service: 09/24/25 ?? Procedure(s): ECG 12 lead ?? Accession Number(s): [id number] ? cc: ?[facility] ? Test Date: ?2025-09-24 ?? Pat Name: ? ESPERANZA YOUNG ?Department: ? Room: ? - ?? Gender: ? Male ? Underwriting Service Representative: ? : ?1970 ? Requested By: ROBERTA ADANMIS ?? Order Number: [id number] ?Reading MD: ?? RUDDY ??IZAIAH, M.D. ? Measurements ?? Intervals ?Elton ? Rate: ? 66 ? P: ?62 ?? NE: ? 141 ?QRS: ?118 ?? QRSD: ? 122 ?T: ?76 ?? QT: ? 342 ? QTc: ?359 ? Interpretive Statements ?? SINUS RHYTHM ?? MARKED RIGHT AXIS DEVIATION [QRS AXIS > 100] RIGHT BUNDLE BRANCH BLOCK [120+ ms QRS DURATION, UPRIGHT V1, 40+ ms S IN ?? I/aVL/V4/V5/V6] ?? Abnormal ECG ?? No previous ECG available for comparison ?? Electronically Signed On 09-24-2025 19:10:18 EST by RUDDY ??Manpreet BLISS ? Dictated By: ?RUDDY BLISS ? Signed By: ?11/26/25 1910 ? DD/ 0736 ? TD/TT: ? Trial Mgr: Procedure Note Radiology, Radiologist, MD - 09/24/2025 [place] [address] Electrocardiograph Report Signed Patient: APOORVA CROWDER#: [id number] : 1970Acct:[id number] Age/Sex: 55 / MADM Date: 09/24/25 Loc: PST Attending Dr: Roberta Luz M.D. Ordering Physician: Roberta Luz M.D. Date of Service: 09/24/25 Procedure(s): ECG 12 lead Accession Number(s): [id number] cc: [facility] Test Date: 2025-09-24 Pat Name: ESPERANZA CROWDER Department: Room: - Gender: Male Underwriting Service Representative: : 1970 Requested By: ROBERTA LUZ Order Number: [id number] Reading MD: RUDDY BLISS M.D. Measurements Intervals Elton Rate: 66 P: 62 NE: 141 QRS: 118 QRSD: 122 T: 76 QT: 342 QTc: 359 Interpretive Statements SINUS RHYTHM MARKED RIGHT AXIS DEVIATION [QRS AXIS > 100] RIGHT BUNDLE BRANCH BLOCK [120+ ms QRS DURATION, UPRIGHT V1, 40+ ms S IN I/aVL/V4/V5/V6] Abnormal ECG No previous ECG available for comparison Electronically Signed On 09-24-2025 19:10:18 EST by RUDDY BLISS M.D. Dictated By: RUDDY BLISS Signed By:09/24/251909 DD/ 5 TD/TT: Trial Mgr: Authorizing ProviderResult TypeResult StatusHilaoumou Luz [facility]ILINISYNC IMAGING Final Result * CT soft tissue neck w IV contrast (09/01/2025 8:19 AM EST)Anatomical Region LateralityModalityHead, NeckComputed Tomography Narrative Authorizing ProviderResult TypeResult StatusLisa SALEH CT PROCEDURESFinal Result from Last 3 Months Insurance Care Teams Team MemberRelationshipSpecialtyStart DateEnd Date Sidney Enriquez DO [address] [place] [address] PCP - GeneralFamily Xheizkrz57/21/25
--- OUTSIDE RECORDS SUMMARY | 2025-10-02 08:55 | XMS_ITS | Encounter Summary ---
Author Organization [facility] Address [address] [place] [address] Care Team Providers Care Aqueduct And Reservoir Keeper Name Role Phone Sidney Enriquez DO Primary Care Provider Encounter Details DateTypeDepartmentCare Team (Latest Contact Info)Qojjmcutlkh78/21/2025amboo flowsheet [facility] [address] [place] [address] Roberta Luz MD [address] [place] [address] Social History Tobacco UseTypesPacks/DayYears UsedDateSmoking Tobacco: Every DayCigarettes Smokeless Tobacco: NeverSex and Gender InformationValueDate RecordedSex Assigned at BirthNot on fileLegal YgoQuyx7001/11/2023 11:50 PM EDTGender IdentityNot on fileSexual OrientationNot on filedocumented as of this encounter Plan of Treatment Not on file documented as of this encounter Visit Diagnoses Not on filedocumented in this encounter Care Teams Team MemberRelationshipSpecialtyStart DateEnd Date Sidney Enriquez DO [address] [place] [address] PCP - GeneralFamily Ygdxuqmd30/21/25documented as of this encounter
--- OUTSIDE RECORDS SUMMARY | 2025-10-02 08:55 | XMS_ITS | Encounter Summary ---
Author Organization [facility] Address [address] [place] [address] Care Team Providers Care Seam Checker Name Role Phone Sidney Enriquez DO Primary Care Provider [phone] Encounter Details DateTypeDepartmentCare Team (Latest Contact Info)Nvlhrdqnkyy46/21/2025Travel Social History Tobacco UseTypesPacks/DayYears UsedDateSmoking Tobacco: Every DayCigarettes Smokeless Tobacco: NeverSex and Gender InformationValueDate RecordedSex Assigned at BirthNot on fileLegal QnfJztl1701/11/2023 11:50 PM EDTGender IdentityNot on fileSexual OrientationNot on filedocumented as of this encounter Plan of Treatment Not on file documented as of this encounter Visit Diagnoses Not on filedocumented in this encounter Care Teams Team MemberRelationshipSpecialtyStart DateEnd Date Sidney Enriquez DO [address] [place] [address] PCP - GeneralFamily Fnsrofou24/21/25documented as of this encounter
--- OUTSIDE RECORDS SUMMARY | 2025-10-02 08:55 | XMS_ITS | Encounter Summary ---
Author Organization [facility] Address [address] [place] [address] Care Team Providers Care Marine Extension Agent Name Role Phone Sidney Enriquez DO Primary Care Provider Encounter Details DateTypeDepartmentCare Team (Latest Contact Info)Vxvqumzxhkc36/20/2025Orders Only [facility] [address] [place] [address] Lisa Salazar MD [address] [place] [address] Social History Tobacco UseTypesPacks/DayYears UsedDateSmoking Tobacco: Never AssessedSex and Gender InformationValueDate RecordedSex Assigned at BirthNot on fileLegal Sex Male01/11/2023 11:50 PM EDTGender IdentityNot on fileSexual OrientationNot on filedocumented as of this encounter Plan of Treatment Not on file documented as of this encounter Procedures Procedure NamePriorityDate/TimeAssociated DiagnosisCommentsCT SOFT TISSUE NECK W IV BGVCDGTMBdxzzeq85/03/2025 8:19 AM ESTdocumented in this encounter Results * CT soft tissue neck w IV contrast (09/01/2025 8:19 AM EST)Anatomical Region LateralityModalityHead, NeckComputed Tomography Narrative Authorizing ProviderResult TypeResult StatusJaclbrittani SALEH CT PROCEDURESFinal Result documented in this encounter Visit Diagnoses Not on filedocumented in this encounter Care Teams Team MemberRelationshipSpecialtyStart DateEnd Date Sidney Enriquez DO [address] [place] [address] PCP - GeneralFamily Dtkroquh78/21/25documented as of this encounter
--- OUTSIDE RECORDS SUMMARY | 2025-10-02 08:55 | XMS_ITS | Clinical Summary ---
Author Organization [facility] Address [address], [address] [place] [address] Care Team Providers Care Respiratory Therapy Aide Name Role Phone Unavailable Primary Care Provider Unavailabl e Encounters DateTypeDepartmentCare CpzePakdwppzoqj03/21/2025Transcribe Orders Mike Carranza Pre Access [address] [place] [address] Lisa Oneal SURVEY DIRECTOR - TECHNICIAN TRAINEE Disorder of brain (Primary Dx)08/18/2025Orders Only Mike Carranza Pre Access [address] [place] [address] Lisa Oneal SURVEY DIRECTOR - TECHNICIAN TRAINEE 08/13/2025 1:48 PM EDT - 08/15/2025 11:59 PM EDTHospital Encounter [facility] [address] [facility] [place] [address] Radiculopathy, cervical Discharge Disposition: Home or Self Care07/15/2025Transcribe Orders Mike Carranza Pre Access [address] [place] [address] Lisa Oneal SURVEY DIRECTOR - TECHNICIAN TRAINEE Radiculopathy, cervical (Primary Dx)from Last 3 Months Social History Tobacco UseTypesPacks/DayYears UsedDateSmoking Tobacco: Never AssessedSex and Gender InformationValueDate RecordedSex Assigned at BirthNot on fileLegal Sex Male07/15/2025 9:09 AM EDTGender IdentityNot on fileSexual OrientationNot on file Plan of Treatment DateTypeDepartmentCare Team (Latest Contact Info)Euddvxgfpyh66/08/2026 12:00 PM ESTAppointment [facility] [address] [facility] [facility] [place] [address] media// sw ptHealth MaintenanceDue DateLast DoneCommentsDepression Screen 1980HIV rqmijo5907/26/1983Hepatitis C qjyrum4307/26/1986DTaP/Tdap/Td vaccine (1 - Tdap)1987Hepatitis B vaccine (1 of 3 - 19+ 3-dose series)1987 Szwcpr7207/26/20087301Indtldieoxj68/27/2013Colorectal Cancer Sezmbw4507/26/2013FIT/FOBT: Average risk2013Fecal-DNA (Cologuard): Average risk2013 Sigmoidoscopy/CT moafeuqkfcel13/27/2013Pneumococcal 50+ years Vaccine (1 of 1 - [...] Procedures Procedure NamePriorityDate/TimeAssociated DiagnosisCommentsMRI CERVICAL SPINE WO KCQCBLCZDcxozkr04/15/2025 2:48 PM EDT Radiculopathy, cervical from Last [...] Authorizing ProviderResult TypeResult StatusLisa Oneal APRN - [facility] ORDERABLESFinal Result from Last 3 Months Insurance
--- OUTSIDE RECORDS SUMMARY | 2025-10-02 08:55 | XMS_ITS | Encounter Summary ---
Author Organization [facility] Address [address] [place] [address] Care Team Providers Care E Business Consultant Name Role Phone SparkleSidney gray Primary Care Provider [phone] Encounter Details DateTypeDepartmentCare Team (Latest Contact Info)Wdpuotakpyn90/26/2025Clinisync Result Encounter [facility] External Department Unsolicited Marisa Luz MD [address] [place] [address] Social History Tobacco UseTypesPacks/DayYears UsedDateSmoking Tobacco: Every DayCigarettes Smokeless Tobacco: NeverSex and Gender InformationValueDate RecordedSex Assigned at BirthNot on fileLegal YyiDfuc4101/11/2023 11:50 PM EDTGender IdentityNot on fileSexual OrientationNot on filedocumented as of this encounter Plan of Treatment Not on file documented as of this encounter Procedures Procedure NamePriorityDate/TimeAssociated DiagnosisCommentsECG 12-LEAD09/24/2025 7:36 AM EST documented in this encounter Results * ECG 12-LEAD (09/24/2025 7:36 AM EST)Anatomical RegionLateralityModalityOther Specimen (Source)Anatomical Location / LateralityCollection Method / Volume Collection TimeReceived Time09/24/2025 7:36 AM EST Narrative 09/24/2025 7:10 PM EST [facility] ?[address] ? [place] [address] ? Electrocardiograph Report ? Signed ? Patient: YOUNG,CHACORTA ? MR#: [id number] ?? : 1970 ?Acct:[id number] ?? Age/Sex: 55 / M ?ADM Date: 11/26/25 ?? Loc: PST ? Attending Dr: Marisa Luz M.D. ? Ordering Physician: Marisa Luz M.D. ?? Date of Service: 09/24/25 ?? Procedure(s): ECG 12 lead ?? Accession Number(s): [id number] ? cc: ?[facility] ? Test Date: ?2025-09-24 ?? Pat Name: ? CHACORTA YOUNG ?Department: ? Room: ? - ?? Gender: ? Male ? Jig Hand: ? : ?1970 ? Requested By: MARISA LUZ ?? Order Number: [id number] ?Reading MD: ?? RUDDY ??Manpreet BLISS ? Measurements ?? Intervals ?[place] ? Rate: ? 66 ? P: ?62 ?? TN: ? 141 ?QRS: ?118 ?? QRSD: ? [...] Dictated By: ?RUDDY BLISS ? Signed By: ?/26/25 1910 ? DD/ 0736 ? TD/TT: ? Economic History Teacher: Procedure Note Radiology, Radiologist, MD - 09/24/2025 [place] [address] Electrocardiograph Report Signed Patient: APOORVA CROWDER#: [id number] : 1970Acct:[id number] Age/Sex: 55 / MADM Date: 09/24/25 Loc: [facility] Attending Dr: Marisa Luz M.D. Ordering Physician: Marisa Luz M.D. Date of Service: 09/24/25 Procedure(s): ECG 12 lead Accession Number(s): [id number] cc: [facility] Test Date: 2025-09-24 Pat Name: CHACORTA CROWDER Department: Room: - Gender: Male Jig Hand: : 1970 Requested By: MARISA LUZ Order Number: [id number] Reading MD: RUDDY BLISS M.D. Measurements Intervals [place] Rate: 66 P: 62 TN: 141 QRS: 118 QRSD: 122 T: 76 [...] RUDDY BLISS Signed By:09/24/251909 DD/ 5 TD/TT: Economic History Teacher: Authorizing ProviderResult TypeResult StatusHilary H Timmis MDCLINISYNC IMAGING Final Result documented in this encounter Visit Diagnoses Not on filedocumented in this encounter Care Teams Team MemberRelationshipSpecialtyStart DateEnd Date Sidney Enriquez DO [address] [facility] [address] [place] [address] PCP - GeneralFamily Ljpixkmt36/21/25documented as of this encounter
--- OUTSIDE RECORDS SUMMARY | 2025-10-02 08:55 | XMS_ITS | Encounter Summary ---
Author Organization [facility] Address [address] [place] [address] Care Team Providers Care Railroad Signal Technician Name Role Phone Jacobporsha Sidney Millie ZAMARRIPA Primary Care Provider [phone] Encounter Details DateTypeDepartmentCare Team (Latest Contact Info)Updiuzgeuhf69/26/2025linisync Result Encounter [facility] External Department Unsolicited Roberta Luz MD [address] [place] [address] Social History Tobacco UseTypesPacks/DayYears UsedDateSmoking Tobacco: Every DayCigarettes Smokeless Tobacco: NeverSex and Gender InformationValueDate RecordedSex Assigned at BirthNot on fileLegal TuhXmnc6101/11/2023 11:50 PM EDTGender IdentityNot on fileSexual OrientationNot on filedocumented as of this encounter Plan of Treatment Not on file documented as of this encounter Procedures Procedure NamePriorityDate/TimeAssociated DiagnosisCommentsALL CBC WITH AUTO KRIJFrzyaxw78/26/2025 8:40 AM EST documented in this encounter Results * (ABNORMAL) ALL CBC WITH AUTO DIFF (09/24/2025 8:40 AM EST)ComponentValueRef RangeTest MethodAnalysis TimePerformed AtPathologist SignatureTBH WBC4.74.0 - 11.0 10 3/uLTBHTBH RBC4.38(L)4.70 - 6.10 10 6/uLTBHTBH HGB14.114.0 - 18.0 g/dL TBHTBH HCT41.9(L)42.0 - 54.0 %TBHTBH MCV95.7(H)80.0 - 94.0 fLTBHTBH MCH32.2 25.9 - 34.0 pgTBHTBH MCHC33.729.9 - 35.2 g/dLTBHTBH RDW12.911.0 - 15.0 %TBHTBH ORJ516442 - 450 10 3/uLTBHTBH MPV9.2(L)9.5 - 13.5 [...] MDCLINISYNCFinal ResultPerforming OrganizationAddressCity/State/ZIP CodePhone Number CLIN[facility]NC [facility] documented in this encounter Visit Diagnoses Not on filedocumented in this encounter Care Teams Team MemberRelationshipSpecialtyStart DateEnd Date Sidney Enriquez DO [address] [place] [address] PCP - GeneralFamily Ygsmjyjb58/21/25documented as of this encounter
--- OUTSIDE RECORDS SUMMARY | 2025-10-02 08:55 | XMS_ITS | Patient Health Record ---
Demographics Address [address] [place] [address] Mobile Email Address Preferred Language en Marital Status unmarried Sikhism Affiliation Unknown Race White Ethnic Group Not or Lati no Author Organization [facility] es Address [address] [place] [address] Care Team Providers Care Delinquent Tax Collection Assistant Name Role Phone Issac Saldaña Primary Care Provider [phone] Allergies Allergen (clinical drug ingredient) Drug/Non Drug [...] Date Dental Childers [employer] [address] [place] [phone] Sheldon SELLERS - patient is the [id number] 2022ental Wrap [facility] [address] [place] [id number], LARRYSelf - patient is the [id number] 2022
--- OUTSIDE RECORDS SUMMARY | 2025-10-02 08:55 | XMS_ITS | Clinical Summary ---
Author Organization [facility] Address [address] [place] [address] Care Team Providers Care Crabber Name Role Phone YvonneSandra clemente Oc CRISTINA Primary Care Provider [phone] Allergies Active AllergyReactionsCriticalityNoted DateCommentsNaproxenGI Upset01/18/2018 Medications MedicationSigDispense [...] Social History Tobacco UseTypesPacks/DayYears UsedDateSmoking Tobacco: Every WuyRcsteuvevk321 Smokeless Tobacco: Never Comments:smokes 1 ppd Alcohol UseStandard Drinks/WeekCommentsYes0 (1 standard drink = 0.6 oz pure alcohol)socialArea Deprivation IndexAnswerDate RecordedNational Score (1-100), lower number is lower riskNot on file10/04/2020State Score (1-10), lower number is lower riskNot on file10/04/2020Data from: https://www.neighborhoodatlas.[facility].edu/. 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 rsrlgvXdhjmj824.9 cm (6')01/18/2018 9:07 AM EDTself report ht/wtBody Mass Index18.9901/18/2018 9:07 AM EDT Plan of Treatment Health MaintenanceDue DateLast DoneCommentsAnxiety Kmmxbmrml43/27/1986Depression Wtkrdtoac83/27/1986HIV Kabzzdpgg96/27/1986Hepatitis C Axzybqozc06/27/1986 DTaP,Tdap,Td Vaccine (1 - Tdap)1987Hepatitis B Vaccine (1 of 3 - 19+ 3- dose series)1987Lipid Uivahjrrj05/27/2003CT Nwoirgtuhlpf32/27/2013 Cologuard (FIT-DNA)07/26/20132965Rbgrmcafntz27/27/2013Colorectal Cancer Screening 2013Diabetes Uwcwmtxdo16/27/2013Fecal Occult Blood2013Prostate Cancer Screening Abcqcfwter94/27/9039Urbfrugfixqyf34/27/2013Pneumococcal Vaccine: 50+ (1 of 1 - PCV)2018Shingrix Vaccine (1 of 2)2018Covid-19 Vaccine (1 - 2024- season)2025Influenza Vaccine (#1)2025 Insurance Care Teams Team MemberRelationshipSpecialtyStart DateEnd Date Sandra Gonsales NP [address] [place] [address] [place] [address] [facility]12/13/17
--- OUTSIDE RECORDS SUMMARY | 2025-10-02 08:55 | XMS_ITS | Encounter Summary ---
Author Organization [facility] Address [address] [place] [address] Care Team Providers Care Suppression Crew Leader Name Role Phone Jacobporsha Sidney Millie ZAMARRIPA Primary Care Provider [phone] Encounter Details DateTypeDepartmentCare Team (Latest Contact Info)Vgmzwappwlw41/26/2025Clinisync Result Encounter [facility] Unsolicited Marisa Luz MD [address] [place] [address] Social History Tobacco UseTypesPacks/DayYears UsedDateSmoking Tobacco: Every DayCigarettes Smokeless Tobacco: NeverSex and Gender InformationValueDate RecordedSex Assigned at BirthNot on fileLegal WhiKofv5501/11/2023 11:50 PM EDTGender IdentityNot on fileSexual OrientationNot on filedocumented as of this encounter Plan of Treatment Not on file documented as of this encounter Procedures Procedure NamePriorityDate/TimeAssociated DiagnosisCommentsXR CHEST 2V111/24/2024 9:13 AM EST [facility] PROTHROMBIN TIME INR W/O SLFJHraudae60/26/2025 8:40 AM EST [facility] JDKVTtgtoxc71/26/2025 8:40 AM EST documented in this encounter Results * XR CHEST 2V (09/24/2025 9:13 AM EST)Anatomical RegionLateralityModalityOther Specimen (Source)Anatomical Location / LateralityCollection Method / Volume Collection TimeReceived Time09/24/2025 9:13 AM EST Narrative 09/24/2025 9:16 AM EST [facility] ?[address] ? [place] [address] ?XRay Report ? Signed ? Patient: YOUNG,CHACORTA ? MR#: [id number] ?? : 1970 ?Acct:[id number] ?? Age/Sex: 55 / M ?ADM Date: 09/24/25 ?? Loc: PST ? Attending Dr: Marisa Luz M.D. ? Ordering Physician: Marisa Luz M.D. ?? Date of Service: 09/24/25 ?? Procedure(s): XR chest 2V ?? Accession Number(s): [id number] ? cc: Sidney Enriquez D.O.; Marisa Luz M.D. ? [facility] ? [address] ? [place] [address] ? Patient Name: ?? CHACORTA ??YOUNG ? MRN: [facility]:[id number] ? date: 1970 ?Sex: M ?? Assigned Patient Location: SURGOUT ?? Current Patient Location: SURGOUT ?? Accession/Order Number: [id number] ?? Exam Date: 09/24/2025 ??09:00 ?Report Date: 09/24/2025 ??09:13 ? At the request of: ?? MARISA ??ELMER ? Procedure: ??XR chest 2V ? PA [...] M.D. ??09/24/2025 9:13 AM ? Dictation Location: [place] [address] ? Electronically authenticated by: [id number] ??Y ?? Date: 09/24/2025 ??09:13 ? Dictated By: ?Romi Farley M.D. ? Signed By: ?09/24/25 0916 ? DD/ 0913 ? TD/TT: ? Mailroom Personnel: Procedure Note Radiology, Radiologist, MD - 09/24/2025 [facility] [place] [id number] XRay Report Signed Patient: CHACORTA CROWDERMR#: [id number] : 1970Acct:[id number] Age/Sex: 55 / MADM Date: 09/24/25 Loc: PST Attending Dr: Marisa Luz M.D. Ordering Physician: Marisa Luz M.D. Date of Service: 09/24/25 Procedure(s): XR chest 2V Accession Number(s): [id number] cc: Sidney Enriquez D.O.; Marisa Luz M.D. The [place] [id number] Patient Name: CHACORTA CROWDER MRN: [id number] date: 1970 Sex: M Assigned Patient Location: [facility] Current Patient Location: [facility] Accession/Order Number: [id number] Exam Date: 09/24/2025 09:00 Report Date: 09/24/2025 09:13 At the request of: MARISA LUZ MD Procedure: XR chest 2V PA [...] Farley M.D. 09/24/2025 9:13 AM Dictation Location: [place] [address] Electronically authenticated by: [id number] Y Date: 9:13 Dictated By: Romi Farley M.D. Signed By:09/24/25915 DD/ 2 TD/TT: Mailroom Personnel: Authorizing ProviderResult TypeResult StatusHilaoumou Luz MDCLINISYNC IMAGING Final Result * [facility] APTT (09/24/2025 8:40 AM EST)ComponentValueRef RangeTest MethodAnalysis TimePerformed AtPathologist SignaturePARTIAL THROMBOPLASTIN TIME26.922.3 - 36.2 secTBHSpecimen (Source)Anatomical Location / LateralityCollection Method / VolumeCollection TimeReceived Time09/24/2025 8:40 AM EST09/24/2025 8:44 AM EST Narrative [facility] - 09/24/2025 9:23 AM EST Authorizing ProviderResult TypeResult StatusHilary H Timmis MDCLINISYNCFinal ResultPerforming OrganizationAddressCity/State/ZIP CodePhone Number [facility] * [facility] PROTHROMBIN TIME INR W/O COUM [...] Timmis MDCLINISYNCFinal ResultPerforming OrganizationAddressCity/State/ZIP CodePhone Number [facility] documented in this encounter Visit Diagnoses Not on filedocumented in this encounter Care Teams Team MemberRelationshipSpecialtyStart DateEnd Date iSdney Enriquez DO 4 [facility] [address] [place] [address] PCP - GeneralFamily Lvyauyjr64/21/25documented as of this encounter
[2025-10-02] MEDS: ACETAMINOPHEN 325 MG TABLET 650 MG PO (10:54)
[2025-10-02] MEDS: MEPERIDINE HCL/PF 25 MG/ML VIAL IVP (11:04)
--- NOTE | 2025-10-02 11:08 | PC.NURSE ---
ekg srip showing base line was running bundle branching and some tacycardia and a few PVC while procedure was being performed.
--- NOTE | 2025-10-02 11:19 | PC.NURSE ---
Patient becomes tachycardic with coughing but heart rate goes back down to the upper 90's
--- NOTE | 2025-10-02 11:20 | PC.NURSE ---
Patient coughing up blood tinged sputum. Per Dr. Luz, Small amount of blood is common with this procedure and may last up to 2 or 3 days
--- NOTE | 2025-10-02 12:06 | PC.NURSE ---
1204 went over discharge paper work and patient verbalizes understanding and has paper work . Discharged in stable condition.
== END 2025-10-02 12:04 | disposition home or self-care (01) ==
PROVIDERS: PCP Family Medicine Adult Medicine; Visit Provider Otolaryngology
PROC: (CPT 320; principal; 2025-10-02 09:45)
DX: D00.07 Carcinoma in situ of tongue (principal); R22.1 Localized swelling, mass and lump, neck; F17.210 Nicotine dependence, cigarettes, uncomplicated; K21.9 Gastro-esophageal reflux disease without esophagitis; G72.41 Inclusion body myositis [IBM]; K58.9 Irritable bowel syndrome, unspecified; M19.90 Unspecified osteoarthritis, unspecified site; F41.9 Anxiety disorder, unspecified
CPT/HCPCS: 31535; 36415; 88305; 88341; 88342; 88360; J2175; J2250; J2405; J2704; J3010